=== PATIENT | female | born 1945 ===

== ENCOUNTER → 2018-04-21 12:32 | Outpatient (CLI) | payer OTHER ==
[~2018-04-21 12:32] MED LIST: ARICEPT10 MG PO; CARAFATE1 GM PO; COZAAR100 MG PO; GABAPENTIN600 MG PO; LANZOPRAZOLE PO; LIPITOR20 MG PO
== END | disposition home or self-care (01) ==
LOC: ADM 10:15 → EKG 12:32 → CIR.AMB 04-29 09:30 → EDSTATUS 04-29 10:15 → CIR.AMB 04-29 10:15
DX: M51.37 Other intervertebral disc degeneration, lumbosacral region (principal); Z01.810 Encounter for preprocedural cardiovascular examination

== ENCOUNTER → 2018-04-29 | Outpatient (CLI) | payer OTHER | END | disposition home or self-care (01) | LOC: LAB 09:19 | DX: N39.0 Urinary tract infection, site not specified (principal) ==